=== PATIENT | male | born 1965 | race Caucasian/White ===

== ENCOUNTER 2018-08-08 06:09 | Emergency (ER) | payer OTHER, SELFPAY ==
[2018-08-08 06:10] VITALS: BP 170/110; PULSE 76; RESP 16; TEMP 36.5; O2SAT 100; BMI 28.8
--- NOTE | 2018-08-08 06:14 | NURSING ---
CALL [facility] FOR [facility] [phone]
--- NOTE | 2018-08-08 07:48 | ED.VISSUMM ---
- ER Visit Summary Date of Service: 08/08/18 Chief Complaint: Left thumb laceration History of Present Illness: The patient is a 53 M who presents with a laceration to his left thumb that occurred today while at work. Patient was using a razor knife when he accidentally cut his left thumb. Patient states the bleeding stopped after several minutes of pressure. Patient states the bleeding worsens with movement. Patient denies any paresthesias or weakness. Patient is unsure of his last tetanus. Physical Examination: Vital signs are stable except for an elevated blood pressure of 170/110. Patient is in no acute distress. Patient is afebrile. Skin is warm and dry. There is a 2 cm full-thickness linear laceration of the pad of the left thumb. There is some bleeding on exam. There is some mild gapping of the wound margins. There are no foreign bodies noted. Sensation was intact to light touch in all digits. Capillary refill was less than 2 seconds in all digits. There is full range of motion of the left thumb. The remaining physical exam is within normal limits. Emergency Department Course and Treatment: Patient was given a tetanus booster. The wound was cleaned and irrigated with copious amounts normal saline. The wound was anesthetized with 1% plain lidocaine. Wound was closed with 3 simple interrupted #5-0 nylon sutures. Bacitracin dressing was applied. Patient tolerated procedure well. Patient was instructed to keep the wound clean and dry. Patient was instructed to follow-up with on license of [facility] in 5-7 days. Patient was instructed to return if worse in any way. Patient understood and was agreeable with the plan. All questions were answered. Disposition: Discharged home Impression: Left thumb laceration This note was generated with bulletn. dictation software. It may contain incorrect words, spelling, and punctuation that were not noted in review of the chart prior to signing ED Disposition - Plan for ED Patient: Disposition: Home or Assisted Living Chief Complaint: Laceration Diagnosis: Laceration of left thumb Instructions: ED Laceration Hand Referrals: Morales Julian,Out of [Primary Care Provider] - [facility] [GROUP OF PHYSICIANS] - Additional Instructions: Follow-up with on license of [facility] in 5-7 days for wound check and suture removal. Follow-up with your primary care physician in 3-5 days for further evaluation of your blood pressure.
--- NOTE | 2018-08-08 07:52 | ED.DCSUM_ITS ---
- ER Visit Summary Date of Service: 08/08/18 Chief Complaint: Left thumb laceration History of Present Illness: The patient is a 53 M who presents with a laceration to his left thumb that occurred today while at work. Patient was using a razor knife when he accidentally cut his left thumb. Patient states the bleeding stopped after several minutes of pressure. Patient states the bleeding worsens with movement. Patient denies any paresthesias or weakness. Patient is unsure of his last tetanus. Physical Examination: Vital signs are stable except for an elevated blood pressure of 170/110. Patient is in no acute distress. Patient is afebrile. Skin is warm and dry. There is a 2 cm full-thickness linear laceration of the pad of the left thumb. There is some bleeding on exam. There is some mild gapping of the wound margins. There are no foreign bodies noted. Sensation was intact to light touch in all digits. Capillary refill was less than 2 seconds in all digits. There is full range of motion of the left thumb. The remaining physical exam is within normal limits. Emergency Department Course and Treatment: Patient was given a tetanus booster. The wound was cleaned and irrigated with copious amounts normal saline. The wound was anesthetized with 1% plain lidocaine. Wound was closed with 3 simple interrupted #5-0 nylon sutures. Bacitracin dressing was applied. Patient tolerated procedure well. Patient was instructed to keep the wound clean and dry. Patient was instructed to follow-up with [facility] in 5-7 days. Patient was instructed to return if worse in any way. Patient understood and was agreeable with the plan. All questions were answered. Disposition: Discharged home Impression: Left thumb laceration This note was generated with AskYou dictation software. It may contain incorrect words, spelling, and punctuation that were not noted in review of the chart prior to signing ED Disposition - Plan for ED Patient: Disposition: Home or Assisted Living Chief Complaint: Laceration Diagnosis: Laceration of left thumb Instructions: ED Laceration Hand Referrals: Morales Julian,Out of [Primary Care Provider] - [facility]ANS] - Additional Instructions: Follow-up with [facility] in 5-7 days for wound check and suture removal. Follow-up with your primary care physician in 3-5 days for further evaluation of your blood pressure.
[2018-08-08] MEDS: Diphth,Pertuss(Acell),Tet Vac 0.5 ML Vial IM (08:33)
== END 2018-08-08 09:10 | disposition home or self-care (01) ==
PROVIDERS: Emergency Provider Emergency Medicine
DX: S61.012A Laceration without foreign body of left thumb without damage to nail, initial encounter (principal); W26.0XXA Contact with knife, initial encounter; Y93.9 Activity, unspecified; Y92.89 Other specified places as the place of occurrence of the external cause; Y99.0 Civilian activity done for income or pay; I10 Essential (primary) hypertension; Z23 Encounter for immunization
CPT/HCPCS: 12001; 90715; 99283

== ENCOUNTER 2022-04-15 23:16 | Emergency (ER) | payer OTHER, BC, SELFPAY ==
[2022-04-15 23:17] VITALS: BP 195/114; PULSE 86; RESP 16; TEMP 36.4; O2SAT 98; BMI 29.5
--- NOTE | 2022-04-15 23:34 | EX.ED.UPPERE ---
HPI History of Present Illness Chief Complaint: Laceration Detail of Chief Complaint: Laceration right forearm Informant: patient Narrative Narrative: Patient presents the emergency department complaint of laceration to the right forearm that occurred approximately 11 PM. Patient was at work when a part going into a machine kicked back and cut him on the right forearm. Patient is right-hand dominant. Patient unsure of his last tetanus. Tetanus Immunization: Unknown PFSH PFSH Medical History Hypertension Kidney stones Non-smoker Home Medications NK 08/08/18 [History Last Taken Unknown] Allergy/AdvReac Type Severity Reaction Status Date / Time No Known Allergies Allergy Verified 04/15/22 23:19 Social History Smoking Status: Never smoker ROS ROS ED Review of Systems ROS Unobtainable: other Constitutional Constitutional ED: Reports lethargy; Denies chills, fever(s), sweats or weight loss Eyes Eyes: Denies blurry vision, change in vision or diplopia ENT ENT ED: Denies rhinorrhea or sore throat Cardiovascular Cardiovascular: Reports chest pain and racing heartbeat; Denies orthopnea Respiratory/Chest Respiratory/Chest: Reports dyspnea and dyspnea on exertion; Denies cough, orthopnea or sputum Gastrointestinal Gastrointestinal: Denies abdominal pain, diarrhea, nausea or vomiting Genitourinary Genitourinary ED: Denies dysuria, hematuria or urinary frequency Musculoskeletal Musculoskeletal: Denies arthralgias, back pain, myalgias or neck pain Integumentary Reports other Details: Laceration right forearm ; Denies abscess, Abrasions or rash Neurologic Neurologic: Denies headache(s) or weakness Psychiatric Psychiatric: Denies anxiety, depression or suicidal thoughts Endocrine Endocrinology: Denies polydipsia, polyphagia or polyuria Hematologic/Lymphatic Hematologic/Lymphatic: Denies easy bleeding, easy bruising or lymphadenopathy Allergic/Immunologic Allergic/Immunologic ED: Denies mouth swelling, tongue swelling or urticaria EXAM Physical Exam Const Vital Signs: 04/15/22 23:17 Temperature 97.6 F L Temperature Source Temporal Pulse Rate 86 Respiratory Rate 16 Blood Pressure 195/114 H Blood Pressure Mean 141 Pulse Ox 98 Oxygen Delivery Method Room Air Positive well nourished and well developed General Appearance ED: well developed and NAD HEENT Reports TM's clear and moist mucous membranes normocephalic and atraumatic; Negative for trauma or tenderness Tympanic Membrane ED: Yes TM's clear Eyes PERRL and EOMs intact bilaterally General Eye ED: Negative for pale conjunctiva or scleral icterus Neck no lymphadenopathy, supple and no JVD General: Negative for tenderness Chest Wall inspection of chest normal and palpation of chest normal Chest: Negative for tenderness Resp normal respiratory effort and clear to auscultation bilaterally Effort and Inspection: Negative for respiratory distress or pain with movement Auscultation: Negative for rhonchi, wheezes or diminished lung sounds Cardio regular rate, regular rhythm, S1 normal heart sound, S2 normal heart sound and no murmurs Peripheral Pulses: pulses 2+ throughout GI normal to inspection, nondistended, normoactive bowel sounds, soft to palpation, non-tender, non-distended and no masses Back/Spine no CVA tenderness and no thoracic nor lumbar tenderness Extremity Extremity Narrative: Right forearm-patient has a 4 cm laceration over the mid forearm that is into the dermis and flap-like. No active bleeding. Patient has normal range of motion of all digits. Patient has normal strength. General Extremety ED: Negative for edema General Extremity: Negative for edema Neuro oriented x3, CN's II-XII intact bilaterally, no sensory deficits noted and gait normal Sensorium / Orientation: awake, alert, oriented to person, oriented to place and oriented to time Motor Exam: strength 5/5 throughout and strength abnormal Psych mental status grossly normal Skin no rashes or lesions noted and no wounds Procedures Lacerations Right forearm laceration: Length: 1.57 in Depth: Sub Q Prep: Sterile Conditions Laceration repair: Irrigated, Lidocaine and Local Irrigated (ml): 100 Number of Sutures/[place]ana: 5 Suture Information: Ethilon, Simple and 5-0 Discharge Plan Triage Chief Complaint: Laceration ED Provider: Edelmira Jones Dx/Rx/DC Orders Clinical Impression: Forearm laceration Instructions: ED Laceration: All Closures Prescriptions: No Action NK Primary Care Provider: Morales Julian,Out of Referrals: [facility],Care [GROUP OF PHYSICIANS] - 10 Day for suture removal Morales Julian,Out of [Primary Care Provider] - Disposition Disposition: Home, Self Care
[2022-04-16] MEDS: Diphth,Pertuss(Acell),Tet Vac 0.5 ML Vial IM (00:15)
[2022-04-16] MEDS: Lidocaine 1% (20 ml mdv) 20 ML Vial 6 ML INFILT (00:15)
[2022-04-16 00:38] VITALS: BP 116/54; O2SAT 98
== END 2022-04-16 00:47 | disposition home or self-care (01) ==
LOC: ED 04-16 00:24
PROVIDERS: Emergency Provider Emergency Medicine; Visit Provider Emergency Medicine
DX: S51.819A Laceration without foreign body of unspecified forearm, initial encounter (principal); W20.8XXA Other cause of strike by thrown, projected or falling object, initial encounter; Y99.0 Civilian activity done for income or pay; I10 Essential (primary) hypertension; Z23 Encounter for immunization
CPT/HCPCS: 12002; 90471; 90715; 99283

== ENCOUNTER 2022-07-08 05:58 | Emergency (ER) | payer OTHER, BC, SELFPAY ==
[2022-07-08 05:59] VITALS: PULSE 74; RESP 17; TEMP 36.6; O2SAT 98; BMI 29.5
[2022-07-08 06:08] VITALS: BP 189/119
[2022-07-08] MEDS: Lidocaine 1% (20 ml mdv) 20 ML Vial 10 ML INFILT (06:12)
--- NOTE | 2022-07-08 06:59 | EDS_ITS ---
HPI History of Present Illness HPI Narrative: Right index finger laceration Chief Complaint: Laceration Informant: patient Occured/Mechanism Mechanism/Context: Yes injury Onset/Context/Timing Onset: Today and Hours Context: Sudden Onset Timing: Continuous Quality of Pain: Sharp Current Severity: Mild Maximum Severity: Mild Associated Symptoms Associated Symptoms: Negative for Parasthesia, Weakness or Loss of Funtion Narrative Narrative: 57-year-old male [id number]. Works at [employer] and lacerated his right index finger on the radial side distal end last night at work. Tetanus is up-to-date he had a recent laceration within the last year. Denies any other complaints. Tetanus Immunization: <5 years Prior similar symptoms: No Recent Illness/Hospitalization: No PFSH PFSH Medical History Hypertension Kidney stones Non-smoker Home Medications NK 08/08/18 [History Last Taken Unknown] Allergy/AdvReac Type Severity Reaction Status Date / Time No Known Allergies Allergy Verified 07/08/22 06:05 Social History Smoking Status: Never smoker ROS ROS ED ROS Narrative Denies recent illness. Review of Systems ROS Unobtainable: Denies due to encephalopathy Constitutional Constitutional ED: Denies fever(s) Eyes Eyes: Denies blurry vision ENT ENT ED: Denies ear pain Cardiovascular Cardiovascular: Denies chest pain Respiratory/Chest Respiratory/Chest: Denies cough Gastrointestinal Gastrointestinal: Denies abdominal pain Genitourinary Genitourinary ED: Denies dysuria Musculoskeletal Musculoskeletal: Denies back pain Integumentary Denies abscess Neurologic Neurologic: Denies headache(s) Psychiatric Psychiatric: Denies anxiety Endocrine Endocrinology: Denies cold intolerance Hematologic/Lymphatic Hematologic/Lymphatic: Denies easy bleeding Allergic/Immunologic Allergic/Immunologic ED: Denies mouth swelling or tongue swelling EXAM Physical Exam Narrative Exam Narrative: Male no acute distress vital signs stable afebrile. Blood pressure elevated 189/119. He has a history of hypertension he does not take medication for that. H EENT exam unremarkable. Neck nontender. Lungs clear to auscultation. Heart regular rhythm no murmur. Abdomen soft nontender. Right hand index finger distal phalanx radial side there is a flap semicircular laceration is approximately 3-1/2 to 4 cm in length. There is oozing of blood. He has full flexion-extension all digits of the hand. No foreign body. No signs of infection. Const Vital Signs: 07/08/22 05:59 07/08/22 06:08 Temperature 97.8 F Temperature Source Temporal Pulse Rate 74 Respiratory Rate 17 Blood Pressure 189/119 H Blood Pressure Mean 142 Pulse Ox 98 Oxygen Delivery Method Room Air Positive well nourished and well developed; Negative for obese, cachectic, contractures or unkempt General Appearance ED: well developed and NAD; Negative for unkempt, cachectic, contractures, cyanotic or diaphoretic Nutritional Appearance: Negative for cachectic or obese HEENT Reports moist mucous membranes normocephalic and atraumatic; Negative for trauma or tenderness Eyes PERRL and EOMs intact bilaterally General Eye ED: Negative for other Neck full ROM and supple General: Negative for tenderness Lymph Lymphatic: Negative for other Resp normal respiratory effort and clear to auscultation bilaterally Effort and Inspection: Negative for pain with movement Auscultation: Negative for rales, rhonchi or wheezes Cardio regular rate, regular rhythm, S1 normal heart sound, S2 normal heart sound and no murmurs Rate: Negative for bradycardia or tachycardic Rhythm: Negative for abnormal rhythm GI non-tender, non-distended and no masses Inspection: Negative for abdominal distention Auscultation: normoactive bowel sounds Palpation: soft; Negative for tender Back/Spine no CVA tenderness Extremity normal to inspection and full ROM Extremity Narrative: Except right index finger, distal phalanx, radial side has a semicircular flap laceration about 4 cm in length. General Extremety ED: Negative for edema or other findings General Extremity: Negative for edema or other findings Neuro oriented x3, CN's II-XII intact bilaterally, moves all extremities, no focal motor deficits and no sensory deficits noted Sensorium / Orientation: alert, oriented to person, oriented to place and oriented to time; Negative for orientation impaired, lethargic or stuporous Motor Exam: strength 5/5 throughout Psych mental status grossly normal Appearance: Negative for unkempt Mood & Affect: Negative for depressed, anxious or tearful Skin General Skin Exam: Negative for petechiae Lesions: no lesions Rashes: no rashes Trauma: laceration; Negative for no lacerations or abrasions or abrasion MDM MDM MDM Narrative Medical decision making narrative: 50-year-old male has a work-related right index finger laceration. We discussed options. He chooses digital block. Finger was blocked with lidocaine. Cleaned using Shur-Clens washed with saline explored and irrigated. No foreign body noted. Normal range of motion. Closed using 4 simple interrupted 6-0 Ethilon sutures. Proper hemostasis and wound closure is obtained. Patient tolerated procedure well. Nurses will clean and dress the wound. Procedures Lacerations Right index finger laceration repair: Length: 1.57 in Depth: Sub Q Shape: Flap Prep: [place] Laceration repair: Digital block, Irrigated, Lidocaine and Skin sutures Number of Sutures/[place]: 4 Suture Information: Ethilon, Simple and 6-0 Comment: Right index finger distal, radial tip flap laceration. Digital block. Cleaned with Shur-Clens. Washed irrigated with saline. Explored. Closed using 4 simple interrupted 6-0 Ethilon sutures. Proper hemostasis and wound closure is obtained. Patient was instructed on wound care. Nurses cleaned and dressed the wound. Discharge Plan Triage Chief Complaint: Laceration ED Provider: Jassi Mcnulty Dx/Rx/DC Orders Clinical Impression: Laceration of finger, index, Worker's compensation claim administrative problem Instructions: ED Laceration, Hand: All Closures Prescriptions: No Action NK Primary Care Provider: Care Physician,No Primary Referrals: [facility] [Group of Physicians] - 10 Day for suture removal Care Physician,No Primary [Primary Care Provider] - Activity Restrictions/Additional Instructions: Keep the area clean and dry. No soaking in dirty water. You can clean it with soap and water or peroxide and water. Carefully dry thoroughly. Apply antibiotic ointment. Motrin and Tylenol for pain. Stitches out in 7 to 10 days. If our dressing stays dry and clean you can leave it on for 4 to 5 days. If it gets dirty or wet or when it is time to change it you can just put a Band-Aid over it. Disposition Disposition: Home, Self Care
== END 2022-07-08 07:26 | disposition home or self-care (01) ==
PROVIDERS: Emergency Provider Emergency Medicine; Visit Provider Emergency Medicine
DX: S61.210A Laceration without foreign body of right index finger without damage to nail, initial encounter (principal); W26.8XXA Contact with other sharp object(s), not elsewhere classified, initial encounter; Y99.0 Civilian activity done for income or pay; I10 Essential (primary) hypertension
CPT/HCPCS: 12002; 99283

== ENCOUNTER 2024-02-26 04:27 | Emergency (ER) | payer OTHER, BC, SELFPAY ==
[2024-02-26 04:27] VITALS: BP 212/120; PULSE 95; RESP 15; TEMP 36.1; O2SAT 98; BMI 29.7
--- NOTE | 2024-02-26 05:53 | EDS_ITS ---
HPI History of Present Illness Chief Complaint: Laceration Informant: patient Narrative Narrative: Patient is a 58-year-old male with past medical history of hypertension although he states he does not take any medication for it. He is right-hand dominant. 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 He states this occurred roughly 1 hour prior to arrival. He denies any numbness tingling or weakness. He denies any history of immunosuppression and states that his tetanus status is up-to-date. He has concerned that the wound may need sutured and with this comes in for evaluation [facility] Medical History Kidney stones Hypertension Non-smoker Home Medications ?Medication ?Instructions ?Recorded ?Last Taken ?Type NK 08/08/18 Unknown History Allergy/AdvReac Type Severity Reaction Status Date / Time No Known Allergies Allergy Verified 02/26/24 04:27 Social History Smoking Status: Never smoker ROS ROS ED Constitutional Constitutional ED: Denies chills or fever(s) ENT ENT ED: Denies sore throat Cardiovascular Cardiovascular: Denies chest pain Respiratory/Chest Respiratory/Chest: Denies cough or dyspnea Gastrointestinal Gastrointestinal: Denies abdominal pain, diarrhea, nausea or vomiting Genitourinary Genitourinary ED: Denies dysuria Musculoskeletal Musculoskeletal: Reports other Details: Positive right index finger laceration Integumentary Reports other Details: Positive finger laceration ; Denies rash Neurologic Neurologic: Denies headache(s), paresthesias or weakness Hematologic/Lymphatic Hematologic/Lymphatic: Denies easy bleeding or easy bruising EXAM Physical Exam Const Vital Signs: 02/26/24 04:27 02/26/24 06:00 Temperature 97 F L Temperature Source Temporal Pulse Rate 95 Respiratory Rate 15 Blood Pressure 212/120 H 184/125 H Blood Pressure Mean 150 144 Pulse Ox 98 Oxygen Delivery Method Room Air Positive well nourished and well developed General Appearance ED: well developed; Negative for pallor HEENT HEENT Narrative: Normocephalic atraumatic Eyes PERRL and EOMs intact bilaterally Neck supple Resp normal respiratory effort and clear to auscultation bilaterally Cardio regular rate and regular rhythm Extremity Extremity Narrative: Right upper extremity is neurovascularly intact; AIN/PIN are intact and normal. Patient has a 3 cm linear subcutaneous layer deep laceration that extends from the PIP joint to the radial aspect of the finger pad with minimal ooze of blood and no foreign body. No ligamentous or tendon damage noted. No nailbed involvement Remainder of the exam is normal Neuro oriented x3, CN's II-XII intact bilaterally and no sensory deficits noted Sensorium / Orientation: alert Motor Exam: strength 5/5 throughout Psych mental status grossly normal Skin no rashes or lesions noted and No no wounds Skin Narrative: Laceration to the right index finger as documented above General Skin Exam: Negative for jaundice or pallor MDM MDM MDM Narrative Medical decision making narrative: Patient presented to the ER hypertensive but does have a past medical history of this and does not take medication for it. Otherwise vitals are stable. Patient had a simple laceration to his right index finger that did not have bony involvement or ligamentous or tendon injury so there is no need for emergent orthopedic consultation or imaging studies. His tetanus status is up-to-date so there is no need to provide this either. Therefore the wound was closed as documented below and he is otherwise safe for discharge. As the wound is overall clean there is no need for prophylactic antibiotics especially as he denies any history of immunosuppression Patient had the right index finger cleaned with chlorhexidine. It was anesthetized using 8 mL of 1% lidocaine without epinephrine and digital block fashion. The wound was copiously irrigated with normal saline. Then eight 4-0 Ethilon sutures were placed in simple interrupted fashion. This brought the wound together well with good approximation. Patient tolerated the procedure well without complication History & Record Review Discussion w/independent historian: Patient Discharge Plan Triage Chief Complaint: Laceration ED Provider: Azar Prater Dx/Rx/DC Orders Clinical Impression: Laceration of right index finger, Hypertension Instructions: ED Laceration, Hand: All Closures Prescriptions: No Action NK Primary Care Provider: Care Physician,No Primary Referrals: [facility] [Group of Physicians] - Care Physician,No Primary [Primary Care Provider] - Activity Restrictions/Additional Instructions: Please return to the ER or see your family doctor or follow-up with Workmen's Compensation to have your sutures removed in 7 to 10 days. If you have any further concerns in the meantime please return to the ER for repeat evaluation Print Language: Kenyan Disposition Disposition: Home, Self Care Discharge Date/Time: 02/26/24 06:03
[2024-02-26 06:00] VITALS: BP 184/125
== END 2024-02-26 06:03 | disposition home or self-care (01) ==
PROVIDERS: Emergency Provider Emergency Medicine; Visit Provider Emergency Medicine
DX: S61.210A Laceration without foreign body of right index finger without damage to nail, initial encounter (principal); W26.8XXA Contact with other sharp object(s), not elsewhere classified, initial encounter; Y99.0 Civilian activity done for income or pay; I10 Essential (primary) hypertension
CPT/HCPCS: 12002; 99282